=== PATIENT | female | born 1995 | race Caucasian/White ===

== ENCOUNTER → 2017-04-15 | Outpatient (CLI) | payer BC ==
[~2017-04-15] MED LIST: ERGO1CAP35 PO; LEVO50TA6 PO; ONDA8TAB62 SL; SERT50TA PO
[2017-04-18 23:49] LABS: CHLAMYDIA TRACH RNA*** DETECTED (NOT DETECTED); GC (NEIS GONORRHOEAE)RNA** NOT DETECTED (NOT DETECTED)
== END | disposition home or self-care (01) ==
LOC: C.LABSPEC 13:36
PROVIDERS: ATTEND Physician Assistant
DX: N89.8 Other specified noninflammatory disorders of vagina (principal)

== ENCOUNTER → 2017-06-17 | Outpatient (CLI) | payer BC ==
[2017-06-22 03:03] LABS: CHLAMYDIA TRACH RNA*** DETECTED (NOT DETECTED); GC (NEIS GONORRHOEAE)RNA** NOT DETECTED (NOT DETECTED)
== END | disposition home or self-care (01) ==
LOC: C.LABSPEC 15:42
PROVIDERS: ATTEND Physician Assistant
DX: N89.8 Other specified noninflammatory disorders of vagina (principal)

== ENCOUNTER 2019-02-12 05:01 | Inpatient (IN) ==
[2019-02-12] MEDS ORDERED: OXYTOCIN 30 UNITS/500 ML BAG IV PRN ×3 (05:32→21:27)
[2019-02-12] MEDS ORDERED: LACTATED RINGER'S 1,000 ML IV PRN ×3 (05:32→13:19)
[2019-02-12 05:56] LABS: Hematocrit (blood only) 33.3 % (37-47); Hemoglobin 11.5 g/dL (12.0-16.0); Mean Corpuscular Volume 87.2 fL (80-100); Mean Platelet Volume 11.2 fL (7.4-10.4); Platelet Count 231 K/uL (130-400); RDW Coefficient of Variation 12.8 % (11.5-14.5); RDW Standard Deviation 40.5 fL (36.4-46.3); Red Blood Count 3.82 M/uL (4.2-5.4); White Blood Count 7.73 K/uL (4.8-10.8)
[2019-02-12 06:02] LABS: Mean Corpuscular Hgb Conc 34.5 g/dL (32-36)
[2019-02-12] MEDS: LACTATED RINGER'S 1,000 ML IV SCH ×3 (08:56→19:21)
[2019-02-12] MEDS ORDERED: BUPIVACAINE 0.25% 30 ML VIAL ONE (09:18)
[2019-02-12] MEDS ORDERED: ePHEDrine sulfate 50 MG/ML AMP ONE (09:19)
[2019-02-12] MEDS ORDERED: fentaNYL citrate 100 MCG/2 ML VIAL ONE (09:19)
[2019-02-12] MEDS ORDERED: fentaNYL 2MCG/ML ROPIV 1.25MG/ML 100 ML BAG EPI ONE (09:19)
--- NOTE | 2019-02-12 09:30 | Obstetrical Progress Note ---
Date of Service February 12, 2019 Subjective Admit note 24 F P0000 at 38.4 weeks admitted in active labor. GBS is negative. FHT Cat 1. Exam by nurs with cervix 4 cm. intact. Will admit and anticipate vaginal delivery. Planning for epidural. Physical Exam Vital Signs (Past 24 Hours): Last Vital Signs Temp 36.9 C 02/12/19 07:05 Pulse 118 H 02/12/19 07:08 Resp 20 02/12/19 07:05 BP 132/88 02/12/19 07:08
[2019-02-12] MEDS ORDERED: fentaNYL 2MCG/ML ROPIV 1.25MG/ML 100 ML BAG EPI PRN (09:35)
[2019-02-12] MEDS ORDERED: ONDANSETRON INJ 2 MG/ML 2 ML VIAL IV PRN (09:35)
[2019-02-12] MEDS ORDERED: DiphenhydrAMINE HCL 50 MG/ML VIAL IV PRN (09:35)
[2019-02-12] MEDS ORDERED: ePHEDrine sulfate 50 MG/ML AMP IV PRN (09:35)
[2019-02-12] MEDS ORDERED: NALOXONE HCL 1 MG in SODIUM CHLORIDE 0.9% 1000ML 1,000 ML IV PRN (09:35)
[2019-02-12] MEDS ORDERED: NALBUPHINE HCL INJ 10 MG/ML AMP IV PRN (09:35)
[2019-02-12] MEDS ORDERED: NALOXONE HCL 0.4 MG/1 ML VIAL/CARP IV PRN (09:35)
--- NOTE | 2019-02-12 09:37 | Anesthesiology Consultation ---
Date of Service February 12, 2019 Assessment & Plan (1) Encounter for pre-operative examination: Chart Review Chart Review: Patient NOT seen in Pre Admission Testing and Acceptable Risk for Labor Epidural Consults Requested none History Height/Weight Height: 5 ft 5 in Weight: 81.647 kg Allergies Allergy/AdvReac Type Severity Reaction Status Date / Time bee venom protein (honey bee) Allergy Intermediate HIVES Verified 10/01/18 17:47 CHILD Medications Home Medications Medication Instructions Recorded Confirmed Last Taken PNV cmb#95-ferrous fumarate-FA 1 tab PO DAILY 09/21/18 02/12/19 02/11/19 08:00 [] ergocalciferol (vitamin D2) 50,000 units PO WK 09/21/18 02/12/19 02/08/19 [Vitamin D2] 0800 bupropion HCl 100 mg PO ONCE 02/12/19 02/12/19 02/11/19 0800 Active Medications Generic Name Dose Route Start Last Admin Trade Name Freq PRN Reason Stop Dose Admin Lactated Ringer's 1,000 mls @ 125 mls/hr 02/12/19 05:45 02/12/19 08:56 Lr IV 02/14/19 05:44 999 mls/hr .Q8H TENNILLE Administration Past Medical History Medical History Dizziness (Resolved) Palpitations (Resolved) Palpitations (Resolved) Back injury (Resolved) Anxiety Depression Pituitary microadenoma Past Surgical History wte Past Anesthesia History No Hx of Anesthesia Complications and No Family Hx of Anesthesia Complications History of PONV No Motion Sickness Screening History of Motion Sickness: No Social History Smoking Status: Never smoker Hx Alcohol Use: No Hx Substance Use: No Exercise / Class Metabolic Activity II 4-5 Yardwork/Stairs/Walk up hill Physical Exam Vital Signs Last Vital Signs Temp 36.9 C 02/12/19 07:05 Pulse 93 H 02/12/19 09:59 Resp 20 02/12/19 07:05 BP 125/88 02/12/19 09:59 Pulse Ox 99 02/12/19 09:56 Testing Laboratory Results 02/12/19 05:42
--- NOTE | 2019-02-12 13:44 | Obstetrical Progress Note ---
Date of Service February 12, 2019 Subjective epidural working well felt pressure and checked by nurse and now 6-7 cm. FHT Cat 1 with contractions spacing out at 4-5 minutes. Will start Oxytocin to augment contractions. Physical Exam Vital Signs (Past 24 Hours): Last Vital Signs Temp 37.0 C 02/12/19 13:04 Pulse 88 02/12/19 13:36 Resp 20 02/12/19 13:04 BP 118/78 02/12/19 13:30 Pulse Ox 98 02/12/19 13:36
[2019-02-12] MEDS ORDERED: MEASLES, MUMPS & RUBELLA VIRUS VIAL SQ ONE (21:27)
[2019-02-12] MEDS ORDERED: ACETAMINOPHEN 325 MG TAB PO PRN (21:27)
[2019-02-12] MEDS ORDERED: SUPERCREAM 0.870% 15 GM JAR EXT PRN (21:27)
[2019-02-12] MEDS ORDERED: BENZOCAINE 20% AER SPR 82.5 GM CAN EXT PRN (21:27)
[2019-02-12] MEDS ORDERED: DIPHTHERIA/TETANUS/PERTUSSIS 0.5 ML SYR/VIAL IM ONE (21:27)
[2019-02-12] MEDS ORDERED: BISACODYL 10 MG SUPP PR PRN (21:27)
[2019-02-12] MEDS ORDERED: HYDROCORTISONE ACETATE 25 MG SUPP PR PRN (21:27)
--- NOTE | 2019-02-12 21:33 | Procedure Note ---
Vaginal Delivery Summary Date of Service February 12, 2019 Supervising Physician Co-Signing Physician Notes Delivery note live male over intact perineum HARVEY with body cord x1 reduced at delivery. Apgars 9/9 weight pending. Delayed cord clamping followed by cord blood and spontaneous delivery of intact placenta. No tears. EBL 200 ml. Final sponge and instrument count are correct. Mom and baby stable.
--- NOTE | 2019-02-12 21:57 | Anesthesia Procedure Note ---
Date of Service February 12, 2019 Anesthesia Post Epidural Note Vital Signs Vital Signs: Temp Pulse Resp BP Pulse Ox 37.6 C H 116 H 20 113/70 96 02/12/19 20:30 02/12/19 21:44 02/12/19 21:44 02/12/19 21:44 02/12/19 21:16 Pain Intensity Bilateral Abdomen: Pain Intensity: 0 Notes Mental Status: alert / awake / arousable Patient Amnestic to Procedure: No Nausea / Vomiting: adequately controlled Pain: adequately controlled Airway Patency, RR, SpO2: stable & adequate BP & HR: stable & adequate Hydration State: stable & adequate Neuraxial Anesthesia: was administered and sensory block is resolving Anesthetic Complications: no major complications apparent and Pt Satisfied with anesthetic care Epidural: Removed without complications and With tip intact
[2019-02-13 07:11] LABS: Hematocrit (blood only) 30.6 % (37-47); Hemoglobin 10.2 g/dL (12.0-16.0); Mean Corpuscular Hgb Conc 33.3 g/dL (32-36); Mean Corpuscular Volume 87.7 fL (80-100); Mean Platelet Volume 11.3 fL (7.4-10.4); Platelet Count 213 K/uL (130-400); RDW Coefficient of Variation 12.8 % (11.5-14.5); RDW Standard Deviation 40.8 fL (36.4-46.3); Red Blood Count 3.49 M/uL (4.2-5.4); White Blood Count 10.17 K/uL (4.8-10.8)
[2019-02-13] MEDS: buPROPion HCl 100 MG TABLET PO SCH (08:28)
[2019-02-13] MEDS: FERROUS SULFATE 325 MG TAB PO SCH (08:28)
[2019-02-13] MEDS: PRENATAL VITAMIN 1 TAB PO SCH (08:28)
[2019-02-13] MEDS: DOCUSATE SODIUM 100 MG CAP PO SCH ×2 (08:28→20:29)
[2019-02-13] MEDS ORDERED: NON-FORMULARY MEDICATION (Pnv Cmb#95-Ferrous Fumarate-Fa [Prenatal] 1 TAB) PO SCH (09:00)
--- NOTE | 2019-02-13 09:07 | Obstetrical Progress Note ---
Date of Service February 13, 2019 Subjective Patient is seen and examined. She feels well, no complaints. Ambulating without dizziness Voiding without difficulty Tolerating regular diet with out N&V Bleeding is minimal No fever/ chills/ CP/ SOB/ N&V/ Leg pain Bottle feeding without problems Vital Signs Temp Pulse Pulse Resp BP BP Pulse Ox 02/13/19 07:35 37.0 C 111 H 20 108/75 02/13/19 03:10 37.1 C 88 18 121/83 02/13/19 00:05 37.1 C 94 H 18 121/80 02/12/19 23:29 100 H 103/70 02/12/19 23:14 104 H 98/66 L 02/12/19 22:59 94 H 109/68 02/12/19 22:44 100 H 118/68 02/12/19 22:29 110 H 20 117/67 02/12/19 22:14 98 H 20 116/73 02/12/19 21:59 95 H 16 117/74 02/12/19 21:44 116 H 20 113/70 02/12/19 21:35 37.6 C H 02/12/19 21:29 131 H 20 104/57 L 02/12/19 21:16 139 H 96 02/12/19 21:14 139 H 118/74 02/12/19 21:11 162 H 98 02/13/19 Range/Units 06:38 WBC 10.17 (4.8-10.8) K/uL RBC 3.49 L (4.2-5.4) M/uL Hgb 10.2 L (12.0-16.0) g/dL Hct 30.6 L (37-47) % MCV 87.7 (80-100) fL MCH 29.2 (25-34) pg MCHC 33.3 (32-36) g/dL RDW Std Deviation 40.8 (36.4-46.3) fL RDW Coeff of Aliya 12.8 (11.5-14.5) % Plt Count 213 (130-400) K/uL MPV 11.3 H (7.4-10.4) fL PE: General: Alert, orientedx3, NAD Abd: soft, NT, fundus firm, below Umbilicus Perineum intact, Lochia rubra minimal Ext; NT, no edema AP: 24 yo s/p , ppd# 1 VSS Afebrile doing well Continue routine care All questions were answered Physical Exam Vital Signs (Past 24 Hours): Last Vital Signs Temp 37.0 C 02/13/19 07:35 Pulse 111 H 02/13/19 07:35 Resp 20 02/13/19 07:35 BP 108/75 02/13/19 07:35 Pulse Ox 96 02/12/19 21:16
[2019-02-13] MEDS: IBUPROFEN 600 MG TAB PO PRN ×2 (15:47→22:48)
[2019-02-13] MEDS ORDERED: BISACODYL 5 MG TABEC PO SCH (20:00)
[2019-02-14 07:04] LABS: Hematocrit (blood only) 28.5 % (37-47); Hemoglobin 9.6 g/dL (12.0-16.0)
--- NOTE | 2019-02-14 08:33 | Obstetrical Progress Note ---
Date of Service February 14, 2019 Physical Exam Vital Signs (Past 24 Hours): Last Vital Signs Temp 36.7 C 02/14/19 00:20 Pulse 79 02/14/19 00:20 Resp 18 02/14/19 00:20 BP 115/72 02/14/19 00:20 Pulse Ox 97 02/14/19 00:20 Physical Exam: ambulating well vaginal bleeding scant to moderate no calf tenderness abdomen soft and non tender
[2019-02-14] MEDS: DOCUSATE SODIUM 100 MG CAP PO SCH (08:58)
[2019-02-14] MEDS: buPROPion HCl 100 MG TABLET PO SCH (08:59)
[2019-02-14] MEDS: FERROUS SULFATE 325 MG TAB PO SCH (08:59)
[2019-02-14] MEDS: PRENATAL VITAMIN 1 TAB PO SCH (08:59)
[2019-02-14 10:48] VITALS: BP 118/77; PULSE 71; TEMP 97.3; O2SAT 96
[2019-02-15] MEDS ORDERED: ERGOCALCIFEROL 50,000 UNITS CAP PO SCH (08:00)
== END 2019-02-14 14:35 | disposition home or self-care (01) | DRG 807 ==
LOC: OPB 05:01 → 4S1 05:03 → 4S2 23:50